=== PATIENT | male | born 1950 | race African-American/Black ===

== ENCOUNTER 2023-10-12 10:27 | Observation (INO) | payer OTHER ==
[2023-10-12] MEDS ORDERED: ACETAMINOPHEN 1000 MG/100 ML BAG IVPB ONE (12:15)
[2023-10-12] MEDS ORDERED: CALCIUM GLUCONATE 10% - 1,000 MG/10 ML VIAL IVPB ONE (12:42)
[2023-10-12 12:50] LABS: BASO % 0.6 % (0-2.0); EOS % 1.1 % (0-4.5); HEMOGLOBIN 10.3 GM/dL (11.7-16.9); LYMPH % 9.8 % (8-40); MCH 28.9 pg (25.7-33.7); MCHC 32.1 g/dl (32.0-35.9); MEAN PLT VOLUME 7.2 fl (7.5-11.1); MONO % 5.9 % (3.8-10.2); NEUT % 82.6 % (42.8-82.8); PLATELET COUNT 157 10^3/uL (134-434); RBC 3.56 M/mm3 (4.00-5.60); RDW 18.3 % (11.9-15.9); WHITE BLOOD COUNT 6.7 K/mm3 (4.0-10.0)
[2023-10-12] MEDS ORDERED: ACETAMINOPHEN INJECTION 100 ML IVPB ONE (12:53)
[2023-10-12] MEDS ORDERED: CALCIUM GLUCONATE 10% - 1,000 MG/10 ML VIAL ONE (12:53)
[2023-10-12 12:55] LABS: INR 1.27 (0.83-1.09); PROTHROMBIN TIME (PATIENT) 14.7 SEC (9.7-13.0)
[2023-10-12 13:09] LABS: POTASSIUM 5.1 mmol/L (3.5-5.1)
[2023-10-12 13:12] LABS: CALCIUM 8.1 mg/dL (8.5-10.1)
[2023-10-12 13:13] LABS: ALBUMIN 2.2 g/dl (3.4-5.0); BLOOD UREA NITROGEN 53.8 mg/dL (7-18); MAGNESIUM 2.1 mg/dL (1.8-2.4)
[2023-10-12 13:17] LABS: BILIRUBIN,TOTAL 0.3 mg/dL (0.2-1); TOT PROT 9.5 g/dl (6.4-8.2)
[2023-10-12 14:37] LABS: POTASSIUM 4.8 mmol/L (3.5-5.1)
[2023-10-12 14:40] LABS: CALCIUM 8.3 mg/dL (8.5-10.1)
[2023-10-12 14:41] LABS: BLOOD UREA NITROGEN 55.9 mg/dL (7-18)
[2023-10-12 14:43] LABS: CREATININE 5.8 mg/dL (0.55-1.3)
[2023-10-12] MEDS ORDERED: SODIUM CHLORIDE 250 ML IV PRN (14:54)
[2023-10-12] MEDS ORDERED: EPOETIN ALFA-EPBX 4,000 UNIT/ML VIAL SQ ONE ×2 (14:54→16:00)
[2023-10-12 15:00] LABS: EPI CELLS 14 /uL (0-25.1); HYALINE CASTS 0 /uL (0-3.1); PH,URINE 6.5 (5.0-8.0); URINE APPEARANCE CLEAR; URINE BACTERIA 5 /uL (0-1359); URINE BILIRUBIN NEGATIVE (NEGATIVE); URINE COLOR YELLOW; URINE GLUCOSE (UA) NEGATIVE (NEGATIVE); URINE KETONE NEGATIVE (NEGATIVE); URINE LEUK ESTERASE NEGATIVE (NEGATIVE); URINE NITRITE NEGATIVE (NEGATIVE); URINE PROTEIN 3+ (NEGATIVE); URINE RBC 14 /uL (0-23.9); URINE UROBILINOGEN 0.2 mg/dL (0.2-1.0); URINE WBC 13 /uL (0-25.8)
[2023-10-12] MEDS ORDERED: EPOETIN ALFA-EPBX 2,000 UNIT/ML VIAL SQ ONE (16:00)
[2023-10-12] MEDS ORDERED: oxyCODONE HCL 5 MG TABLET PO ONE (22:15)
[2023-10-12] MEDS ORDERED: oxyCODONE HCL 5 MG TABLET ONE (22:36)
[2023-10-13 07:21] LABS: BASO % 0.3 % (0-2.0); EOS % 1.4 % (0-4.5); HEMATOCRIT 25.5 % (35.4-49); HEMOGLOBIN 8.4 GM/dL (11.7-16.9); MCHC 33.1 g/dl (32.0-35.9); MEAN CELL VOLUME 87.5 fl (80-96); MONO % 8.1 % (3.8-10.2); NEUT % 76.2 % (42.8-82.8); PLATELET COUNT 130 10^3/uL (134-434); RBC 2.91 M/mm3 (4.00-5.60); RDW 17.9 % (11.9-15.9); WHITE BLOOD COUNT 6.3 K/mm3 (4.0-10.0)
[2023-10-13 07:30] LABS: CALCIUM 7.4 mg/dL (8.5-10.1)
[2023-10-13 07:31] LABS: ALBUMIN 1.9 g/dl (3.4-5.0)
[2023-10-13 07:34] LABS: CREATININE 3.7 mg/dL (0.55-1.3)
[2023-10-13 07:36] LABS: BILIRUBIN,TOTAL 0.4 mg/dL (0.2-1)
[2023-10-13 07:51] LABS: BLOOD UREA NITROGEN 30.1 mg/dL (7-18)
[2023-10-13] MEDS ORDERED: LIDOCAINE 4% PATCH TP ONE (11:03)
[2023-10-13] MEDS ORDERED: ACETAMINOPHEN 500 MG TABLET (FP) ONE (11:04)
[2023-10-13] MEDS ORDERED: amLODIPine BESYLATE 5 MG TABLET (FP) ONE (11:07)
[2023-10-13] MEDS: ACETAMINOPHEN 500 MG TABLET (FP) PO SCH ×2 (11:13→13:21)
[2023-10-13] MEDS: LIDOCAINE 4% PATCH TP SCH (11:13)
[2023-10-13] MEDS: amLODIPine BESYLATE 5 MG TABLET (FP) PO SCH (11:13)
[2023-10-13] MEDS ORDERED: NALOXONE (NYS OPIOID OVERDOSE PROGRAM) 4 MG/0.1 ML SPRAY NS ONE (13:35)
[2023-10-14] MEDS: ACETAMINOPHEN 500 MG TABLET (FP) PO SCH ×4 (00:04→23:23)
[2023-10-14] MEDS: LIDOCAINE PATCH REMOVAL MC SCH ×2 (00:04→23:25)
[2023-10-14] MEDS ORDERED: ACETAMINOPHEN 325 MG TABLET (FP) ONE (01:32)
[2023-10-14] MEDS ORDERED: MELATONIN 5 MG TABLETS ONE (02:06)
[2023-10-14] MEDS ORDERED: oxyCODONE HCL 5 MG TABLET PO ONE (02:47)
[2023-10-14] MEDS ORDERED: SODIUM CHLORIDE 250 ML IV PRN (07:51)
[2023-10-14] MEDS ORDERED: EPOETIN ALFA-EPBX 4,000 UNIT/ML VIAL SQ ONE (08:15)
[2023-10-14 09:18] VITALS: RESP 18
[2023-10-14 09:27] LABS: HEMATOCRIT 26.5 % (35.4-49); HEMOGLOBIN 8.8 GM/dL (11.7-16.9); MCH 29.4 pg (25.7-33.7); MCHC 33.2 g/dl (32.0-35.9); MEAN CELL VOLUME 88.8 fl (80-96); MEAN PLT VOLUME 7.1 fl (7.5-11.1); PLATELET COUNT 137 10^3/uL (134-434); RBC 2.98 M/mm3 (4.00-5.60); RDW 17.8 % (11.9-15.9); WHITE BLOOD COUNT 6.3 K/mm3 (4.0-10.0)
[2023-10-14 09:43] LABS: POTASSIUM 4.4 mmol/L (3.5-5.1)
[2023-10-14 09:54] LABS: CREATININE 4.4 mg/dL (0.55-1.3)
[2023-10-14 09:55] LABS: BILIRUBIN,TOTAL 0.4 mg/dL (0.2-1); TOT PROT 8.4 g/dl (6.4-8.2)
[2023-10-14] MEDS: TAMSULOSIN HCL 0.4 MG CAP PO SCH ×2 (11:10→12:43)
[2023-10-14] MEDS: FINASTERIDE 5 MG TABLET (FP) PO SCH (12:43)
[2023-10-14] MEDS: amLODIPine BESYLATE 5 MG TABLET (FP) PO SCH (12:43)
[2023-10-14] MEDS: LIDOCAINE 4% PATCH TP SCH (12:43)
[2023-10-14 14:06] VITALS: BMI 23.4
[2023-10-14] MEDS: oxyCODONE HCL 5 MG TABLET PO PRN (15:43)
[2023-10-15] MEDS: ACETAMINOPHEN 500 MG TABLET (FP) PO SCH (06:11)
[2023-10-15] MEDS: LIDOCAINE 4% PATCH TP SCH (09:48)
[2023-10-15] MEDS: amLODIPine BESYLATE 5 MG TABLET (FP) PO SCH (09:48)
[2023-10-15] MEDS: TAMSULOSIN HCL 0.4 MG CAP PO SCH (09:48)
[2023-10-15] MEDS: FINASTERIDE 5 MG TABLET (FP) PO SCH (09:48)
[2023-10-15 09:52] VITALS: BP 114/76; PULSE 90; TEMP 97.8
[2023-10-15] MEDS ORDERED: APIXABAN 2.5 MG TABLET PO SCH (11:15)
[2023-10-15] MEDS: oxyCODONE HCL 5 MG TABLET PO PRN (12:55)
== END 2023-10-15 13:23 | disposition home or self-care (01) ==
LOC: JER 10:27 → JERBED 14:45 → J4W 10-14 11:35
PROVIDERS: ADMIT Internal Medicine; ATTEND Internal Medicine
PROC: 3E033NZ Introduction of Analgesics, Hypnotics, Sedatives into Peripheral Vein, Percutaneous Approach (ICD-10-PCS; principal; 2023-10-12)
PROC: 3E033GC Introduction of Other Therapeutic Substance into Peripheral Vein, Percutaneous Approach (ICD-10-PCS; 2023-10-12)
PROC: 3E033NZ Introduction of Analgesics, Hypnotics, Sedatives into Peripheral Vein, Percutaneous Approach (ICD-10-PCS; 2023-10-12)
PROC: 3E023GC Introduction of Other Therapeutic Substance into Muscle, Percutaneous Approach (ICD-10-PCS; 2023-10-12)
PROC: 3E033NZ Introduction of Analgesics, Hypnotics, Sedatives into Peripheral Vein, Percutaneous Approach (ICD-10-PCS; 2023-10-12)
PROC: 3E033GC Introduction of Other Therapeutic Substance into Peripheral Vein, Percutaneous Approach (ICD-10-PCS; 2023-10-12)
PROC: 3E023GC Introduction of Other Therapeutic Substance into Muscle, Percutaneous Approach (ICD-10-PCS; 2023-10-12)
DX: I12.0 Hypertensive chronic kidney disease with stage 5 chronic kidney disease or end stage renal disease (principal); I24.9 Acute ischemic heart disease, unspecified; D64.9 Anemia, unspecified; N40.0 Benign prostatic hyperplasia without lower urinary tract symptoms; M25.519 Pain in unspecified shoulder; K74.60 Unspecified cirrhosis of liver; N18.6 End stage renal disease; Z99.2 Dependence on renal dialysis; R25.2 Cramp and spasm; R07.9 Chest pain, unspecified; Z87.891 Personal history of nicotine dependence
CPT/HCPCS: 36415; 71045-TC-FY; 73030-TC-LT-FY; 80048; 80053; 81003; 82607; 82728; 82746; 82962; 83540; 83550; 83735; 83880; 84100; 84443; 84466; 84484; 85025; 85027; 85610; 86704; 86803; 86850; 86900; 86901; 87086; 87340; 87517; 87522; 93005; 93010; 93306-TC; 96372; 96374; 96375; 97116-GP; 97161-GP; 99285-25; G0378; Q5106

== ENCOUNTER 2023-12-28 10:13 | Inpatient (IN) | payer OTHER ==
[2023-12-28] MEDS ORDERED: ACETAMINOPHEN INJECTION 100 ML IVPB ONE (11:22)
[2023-12-28] MEDS: ACETAMINOPHEN 1000 MG/100 ML BAG IVPB ONE ×2 (11:40→14:03)
[2023-12-28 11:44] LABS: BASO % 0.5 % (0-2.0); EOS % 2.4 % (0-4.5); HEMATOCRIT 26.2 % (35.4-49); HEMOGLOBIN 8.6 GM/dL (11.7-16.9); LYMPH % 18.2 % (8-40); MCH 29.5 pg (25.7-33.7); MEAN CELL VOLUME 89.6 fl (80-96); MEAN PLT VOLUME 6.9 fl (7.5-11.1); MONO % 8.8 % (3.8-10.2); NEUT % 70.1 % (42.8-82.8); PLATELET COUNT 170 10^3/uL (134-434); RBC 2.93 M/mm3 (4.00-5.60); RDW 17.7 % (11.9-15.9); WHITE BLOOD COUNT 4.5 K/mm3 (4.0-10.0)
[2023-12-28 11:59] LABS: POTASSIUM 4.6 mmol/L (3.5-5.1)
[2023-12-28 12:02] LABS: ALBUMIN 2.1 g/dl (3.4-5.0); BLOOD UREA NITROGEN 40.4 mg/dL (7-18); CALCIUM 7.8 mg/dL (8.5-10.1); MAGNESIUM 2.1 mg/dL (1.8-2.4)
[2023-12-28 12:05] LABS: CREATININE 5.5 mg/dL (0.55-1.3); PHOSPHOROUS 4.2 mg/dL (2.5-4.9)
[2023-12-28 12:07] LABS: BILIRUBIN,TOTAL 0.3 mg/dL (0.2-1); TOT PROT 8.7 g/dl (6.4-8.2)
[2023-12-28] MEDS ORDERED: ACETAMINOPHEN 325 MG TABLET (FP) PO PRN (14:47)
[2023-12-28] MEDS ORDERED: SODIUM CHLORIDE 250 ML IV PRN (15:28)
[2023-12-28] MEDS ORDERED: oxyCODONE HCL 5 MG TABLET ONE (15:37)
[2023-12-28] MEDS: oxyCODONE HCL 5 MG TABLET PO PRN (15:42)
[2023-12-28] MEDS: EPOETIN ALFA-EPBX 4,000 UNIT/ML VIAL SQ ONE (16:40)
[2023-12-28] MEDS ORDERED: VANCOMYCIN 1,000 MG in DEXTROSE 5%-WATER - 250 ML IVPB ONE (18:47)
[2023-12-28] MEDS ORDERED: PIPERACILLIN/TAZOB 3.375 GM 3.375 GM in DEXTROSE 5%-WATER - 50 ML IVPB ONE (19:29)
[2023-12-28 20:46] LABS: BF WBC & OTHER NUCLEATED CELLS 48968 /mm3
[2023-12-28 21:22] LABS: BODY FLUID MONOCYTE 1 %
[2023-12-28] MEDS: PIPERACILLIN/TAZOB 4.5 GM 4.5 GM in DEXTROSE 5%-WATER 100 ML IVPB ONE (22:01)
[2023-12-28] MEDS: DOCUSATE SODIUM 100 MG CAPSULE (FP) PO SCH (22:42)
[2023-12-28] MEDS: PIPERACILLIN/TAZOB 3.375 GM 3.375 GM in DEXTROSE 5%-WATER - 50 ML IVPB ONE (22:42)
[2023-12-28] MEDS: VANCOMYCIN/WATER FOR INJ (PEG) 1,000 MG/200 ML BAG IVPB ONE (22:43)
[2023-12-29] MEDS ORDERED: PIPERACILLIN/TAZOB 3.375 GM 3.375 GM in DEXTROSE 5%-WATER - 50 ML IVPB SCH (02:00)
[2023-12-29] MEDS: PIPERACILLIN/TAZOB 2.25 GM 2.25 GM in DEXTROSE 5%-WATER - 50 ML IVPB SCH ×3 (02:41→14:13)
[2023-12-29] MEDS: TAMSULOSIN HCL 0.4 MG CAP PO SCH (08:19)
[2023-12-29 10:03] LABS: BASO % 0.3 % (0-2.0); EOS % 2.4 % (0-4.5); HEMATOCRIT 25.4 % (35.4-49); HEMOGLOBIN 8.3 GM/dL (11.7-16.9); LYMPH % 16.5 % (8-40); MCH 29.5 pg (25.7-33.7); MCHC 32.8 g/dl (32.0-35.9); NEUT % 73.8 % (42.8-82.8); PLATELET COUNT 140 10^3/uL (134-434); RBC 2.82 M/mm3 (4.00-5.60); RDW 17.8 % (11.9-15.9); WHITE BLOOD COUNT 5.3 K/mm3 (4.0-10.0)
[2023-12-29 10:15] LABS: POTASSIUM 5.4 mmol/L (3.5-5.1)
[2023-12-29 10:35] LABS: CALCIUM 7.5 mg/dL (8.5-10.1)
[2023-12-29 10:36] LABS: ALBUMIN 1.8 g/dl (3.4-5.0)
[2023-12-29 10:37] LABS: BLOOD UREA NITROGEN 51.2 mg/dL (7-18); MAGNESIUM 1.9 mg/dL (1.8-2.4)
[2023-12-29 10:39] LABS: CREATININE 5.6 mg/dL (0.55-1.3)
[2023-12-29 10:41] LABS: BILIRUBIN,TOTAL 0.3 mg/dL (0.2-1); TOT PROT 7.8 g/dl (6.4-8.2)
[2023-12-29] MEDS: EPOETIN ALFA-EPBX 4,000 UNIT/ML VIAL IVPUSH ONE (12:41)
[2023-12-29] MEDS: VANCOMYCIN/WATER FOR INJ (PEG) 1 GM/200 ML BAG IVPB ONE (14:08)
[2023-12-29] MEDS: FINASTERIDE 5 MG TABLET (FP) PO SCH (14:09)
[2023-12-29] MEDS: amLODIPine BESYLATE 5 MG TABLET (FP) PO SCH (14:11)
[2023-12-29] MEDS: VANCOMYCIN 1 GM PREMIX - 1 GM/200 ML BAG IVPB ONE (15:25)
[2023-12-30] MEDS ORDERED: PIPERACILLIN/TAZOBACTAM 2.25 GM VIAL IVPB ONE (01:48)
[2023-12-30 08:29] LABS: BASO % 0.5 % (0-2.0); EOS % 1.8 % (0-4.5); HEMATOCRIT 25.8 % (35.4-49); HEMOGLOBIN 8.3 GM/dL (11.7-16.9); LYMPH % 15.1 % (8-40); MCH 28.8 pg (25.7-33.7); MCHC 32.1 g/dl (32.0-35.9); MEAN CELL VOLUME 89.9 fl (80-96); MONO % 11.3 % (3.8-10.2); NEUT % 71.3 % (42.8-82.8); PLATELET COUNT 135 10^3/uL (134-434); RBC 2.87 M/mm3 (4.00-5.60); RDW 18.2 % (11.9-15.9); WHITE BLOOD COUNT 5.6 K/mm3 (4.0-10.0)
[2023-12-30 08:55] LABS: CALCIUM 7.7 mg/dL (8.5-10.1)
[2023-12-30 08:56] LABS: ALBUMIN 1.8 g/dl (3.4-5.0); BLOOD UREA NITROGEN 31.4 mg/dL (7-18)
[2023-12-30] MEDS ORDERED: MECLIZINE HCL 12.5 MG TABLET PO PRN ×2 (08:58→16:14)
[2023-12-30 08:59] LABS: CREATININE 3.5 mg/dL (0.55-1.3)
[2023-12-30 09:00] LABS: BILIRUBIN,TOTAL 0.5 mg/dL (0.2-1); TOT PROT 7.8 g/dl (6.4-8.2)
[2023-12-30] MEDS: morphine SULFATE 4 MG/ML VIAL IVPUSH ONE (10:10)
[2023-12-30] MEDS ORDERED: PROPOFOL 40 ML ONE (13:56)
[2023-12-30] MEDS ORDERED: ROCURONIUM BROMIDE 50 MG/5 ML SYRINGE ONE (13:57)
[2023-12-30] MEDS ORDERED: SUCCINYLCHOLINE CHLORIDE 200 MG/10 ML SYRINGE ONE (13:57)
[2023-12-30] MEDS ORDERED: FENTANYL CITRATE/PF 50 MCG/ML VIAL ONE ×4 (13:57→15:42)
[2023-12-30] MEDS ORDERED: ceFAZolin SODIUM 1 GM VIAL ONE ×2 (14:00→15:06)
[2023-12-30] MEDS: ceFAZolin SODIUM 1 GM VIAL IVPB ONE ×2 (14:10→14:57)
[2023-12-30] MEDS: VANCOMYCIN 1,000 MG VIAL (RESTRICTED TO ID ONLY) IVPB ONE (15:00)
[2023-12-30] MEDS ORDERED: VANCOMYCIN 1,000 MG VIAL (RESTRICTED TO ID ONLY) ONE (15:06)
[2023-12-30] MEDS ORDERED: LIDOCAINE HCL/PF 2% SDV 5ML VIAL ONE (15:06)
[2023-12-30] MEDS ORDERED: PHENYLEPHRINE HCL 10 MG/1 ML SINGLE DOSE VIAL ONE (15:06)
[2023-12-30] MEDS ORDERED: DEXAMETHASONE SOD PHOSPHATE 4 MG/1 ML VIAL ONE (15:06)
[2023-12-30] MEDS ORDERED: ONDANSETRON 4 MG/2 ML VIAL ONE (15:06)
[2023-12-30] MEDS: ACETAMINOPHEN INJECTION 100 ML IVPB ONE (15:55)
[2023-12-30] MEDS: ACETAMINOPHEN 1000 MG/100 ML BAG IVPB ONE (15:55)
[2023-12-30] MEDS ORDERED: LACTATED RINGERS SOLUTION 1,000 ML IV SCH (16:14)
[2023-12-30] MEDS: LACTATED RINGERS SOLUTION 1,000 ML IV SCH (18:12)
[2023-12-30] MEDS: oxyCODONE HCL 5 MG TABLET PO PRN (18:42)
[2023-12-30] MEDS ORDERED: SODIUM CHLORIDE 250 ML IV PRN (18:43)
[2023-12-30] MEDS: PIPERACILLIN/TAZOB 2.25 GM 2.25 GM in DEXTROSE 5%-WATER - 50 ML IVPB SCH (18:45)
[2023-12-30] MEDS: DOCUSATE SODIUM 100 MG CAPSULE (FP) PO SCH (21:24)
[2023-12-30] MEDS: ACETAMINOPHEN 325 MG TABLET (FP) PO PRN (22:40)
[2023-12-31] MEDS: EPOETIN ALFA-EPBX 10,000 UNIT/ML VIAL SQ ONE (10:30)
[2023-12-31] MEDS: FINASTERIDE 5 MG TABLET (FP) PO SCH (12:46)
[2023-12-31] MEDS: TAMSULOSIN HCL 0.4 MG CAP PO SCH (12:46)
[2023-12-31] MEDS: amLODIPine BESYLATE 5 MG TABLET (FP) PO SCH (12:47)
[2023-12-31] MEDS: oxyCODONE HCL 5 MG TABLET PO PRN (13:03)
[2024-01-03] MEDS ORDERED: SODIUM CHLORIDE 250 ML IV PRN (08:00)
[2024-01-03] MEDS: EPOETIN ALFA-EPBX 4,000 UNIT/ML VIAL IVPUSH ONE (11:29)
[2024-01-03] MEDS ORDERED: PIPERACILLIN/TAZOBACTAM 2.25 GM VIAL IVPB ONE ×2 (13:11→17:45)
[2024-01-03] MEDS: VANCOMYCIN/WATER FOR INJ (PEG) 1,000 MG/200 ML BAG IVPB ONE (15:13)
[2024-01-03] MEDS: MECLIZINE HCL 25 MG TABLET (FP) PO PRN (18:21)
[2024-01-04] MEDS: oxyCODONE HCL 5 MG TABLET PO ONE (01:09)
[2024-01-04 11:26] VITALS: BMI 21.7
[2024-01-04] MEDS: CEFTRIAXONE 2 GM in DEXTROSE 5%-WATER 100 ML IVPB SCH (13:35)
[2024-01-04] MEDS ORDERED: MECLIZINE HCL 25 MG TABLET (FP) PO PRN (15:42)
[2024-01-05] MEDS: VITAMIN B COMP W-C 1 EA TABLET (NEPHRO-VITE) PO SCH (09:23)
[2024-01-05] MEDS ORDERED: SODIUM CHLORIDE 250 ML IV PRN (13:41)
[2024-01-05] MEDS: EPOETIN ALFA-EPBX 10,000 UNIT/ML VIAL IVPUSH ONE (16:28)
[2024-01-05] MEDS: VANCOMYCIN/WATER 1250 MG 1,250 MG/250 ML BAG IVPB ONE (17:16)
[2024-01-05] MEDS: oxyCODONE HCL 5 MG TABLET PO PRN (17:23)
[2024-01-06 11:09] VITALS: BP 132/62; PULSE 75; RESP 19; TEMP 98.6
[2024-01-06 13:12] LABS: BASO % 0.7 % (0-2.0); EOS % 3.6 % (0-4.5); HEMATOCRIT 23.2 % (35.4-49); HEMOGLOBIN 7.5 GM/dL (11.7-16.9); MCH 29.7 pg (25.7-33.7); MCHC 32.1 g/dl (32.0-35.9); MEAN CELL VOLUME 92.4 fl (80-96); MEAN PLT VOLUME 7.2 fl (7.5-11.1); MONO % 10.1 % (3.8-10.2); NEUT % 63.6 % (42.8-82.8); PLATELET COUNT 168 10^3/uL (134-434); RBC 2.52 M/mm3 (4.00-5.60); RDW 18.8 % (11.9-15.9); WHITE BLOOD COUNT 5.2 K/mm3 (4.0-10.0)
[2024-01-06 13:32] LABS: CHLORIDE 96 mmol/L (98-107); POTASSIUM 3.5 mmol/L (3.5-5.1); SODIUM 135 mmol/L (136-145)
[2024-01-06 13:34] LABS: ALBUMIN 1.9 g/dl (3.4-5.0); ANION GAP 8 mmol/L (4-13); CALCIUM 8.1 mg/dL (8.5-10.1); CO2 31 mmol/L (21-32); GLUCOSE,RANDOM 124 mg/dL (74-106)
[2024-01-06 13:37] LABS: SGPT/ALT < 6 U/L (13-61)
[2024-01-06 13:38] LABS: CREATININE 3.6 mg/dL (0.55-1.3); SGOT/AST 19 U/L (15-37)
[2024-01-06 13:39] LABS: BILIRUBIN,TOTAL 0.4 mg/dL (0.2-1); TOT PROT 8.2 g/dl (6.4-8.2)
[2024-01-06 13:40] LABS: ALK PHOS 72 U/L (45-117)
[2024-01-06 14:58] LABS: ERYTHROCYTE SEDIMENTATION RATE > 140 mm/hr (0-20)
== END 2024-01-06 14:38 | disposition home health service (06) | DRG 463 ==
LOC: JER 10:13 → JERBED 14:05 → OBSVTOIN 14:43 → J8W 19:16
PROVIDERS: ADMIT Internal Medicine; ATTEND Internal Medicine
PROC: 05993ZZ Drainage of Right Brachial Vein, Percutaneous Approach (ICD-10-PCS; 2023-12-30)
PROC: 3E10X8Z Irrigation of Skin and Mucous Membranes using Irrigating Substance (ICD-10-PCS; 2023-12-30)
PROC: 0JBL0ZZ Excision of Right Upper Leg Subcutaneous Tissue and Fascia, Open Approach (ICD-10-PCS; principal; 2023-12-30 14:00)
PROC: 5A1D70Z Performance of Urinary Filtration, Intermittent, Less than 6 Hours Per Day (ICD-10-PCS; 2023-12-31)
PROC: 5A1D70Z Performance of Urinary Filtration, Intermittent, Less than 6 Hours Per Day (ICD-10-PCS; 2024-01-03)
PROC: 5A1D70Z Performance of Urinary Filtration, Intermittent, Less than 6 Hours Per Day (ICD-10-PCS; 2024-01-05)
DX: T84.51XA Infection and inflammatory reaction due to internal right hip prosthesis, initial encounter (principal); N18.6 End stage renal disease; M00.9 Pyogenic arthritis, unspecified; I12.0 Hypertensive chronic kidney disease with stage 5 chronic kidney disease or end stage renal disease; Z96.643 Presence of artificial hip joint, bilateral; N40.0 Benign prostatic hyperplasia without lower urinary tract symptoms; R26.2 Difficulty in walking, not elsewhere classified; Y83.8 Other surgical procedures as the cause of abnormal reaction of the patient, or of later complication, without mention of misadventure at the time of the procedure; Y92.9 Unspecified place or not applicable; Z99.2 Dependence on renal dialysis
CPT/HCPCS: 36415; 72192-TC; 73502-TC-RT-FY; 80053; 82962; 83735; 84100; 85025; 85651; 86140; 86704; 86705; 86803; 87040; 87070; 87075; 87102; 87205; 87210; 87340; 87522; 88304-TC; 93005; 93010; 93880-TC; 94760; 97116-GP; 97161-GP; 99285-25; G0378; G0480; J0131; Q5106

== ENCOUNTER 2024-02-08 10:29 | Inpatient (IN) | payer OTHER ==
[2024-02-08 13:09] LABS: BASO % 0.6 % (0-2.0); EOS % 1.8 % (0-4.5); HEMATOCRIT 28.1 % (35.4-49); HEMOGLOBIN 9.2 GM/dL (11.7-16.9); LYMPH % 17.9 % (8-40); MCH 31.4 pg (25.7-33.7); MCHC 32.8 g/dl (32.0-35.9); MEAN CELL VOLUME 95.8 fl (80-96); MEAN PLT VOLUME 8.2 fl (7.5-11.1); MONO % 11.2 % (3.8-10.2); NEUT % 68.5 % (42.8-82.8); PLATELET COUNT 113 10^3/uL (134-434); RBC 2.93 M/mm3 (4.00-5.60); RDW 17.3 % (11.9-15.9); WHITE BLOOD COUNT 3.6 K/mm3 (4.0-10.0)
[2024-02-08 13:43] LABS: CHLORIDE 106 mmol/L (98-107); SODIUM 128 mmol/L (136-145)
[2024-02-08 13:45] LABS: BLOOD UREA NITROGEN 56.9 mg/dL (7-18); CALCIUM 8.2 mg/dL (8.5-10.1)
[2024-02-08 13:46] LABS: ALBUMIN 2.4 g/dl (3.4-5.0); CO2 19 mmol/L (21-32); GLUCOSE,RANDOM 101 mg/dL (74-106); MAGNESIUM 2.6 mg/dL (1.8-2.4)
[2024-02-08 13:49] LABS: SGOT/AST 59 U/L (15-37)
[2024-02-08 13:50] LABS: BILIRUBIN,TOTAL 0.5 mg/dL (0.2-1); ERYTHROCYTE SEDIMENTATION RATE 108 mm/hr (0-20); TOT PROT 9.7 g/dl (6.4-8.2)
[2024-02-08 13:52] LABS: ALK PHOS 87 U/L (45-117)
[2024-02-08 13:57] LABS: ANION GAP 4 mmol/L (4-13); CREATININE 5.7 mg/dL (0.55-1.3); POTASSIUM 8.6 mmol/L (3.5-5.1); SGPT/ALT 11 U/L (13-61)
[2024-02-08] MEDS ORDERED: ACETAMINOPHEN INJECTION 100 ML IVPB ONE (14:54)
[2024-02-08] MEDS: ACETAMINOPHEN 1000 MG/100 ML BAG IVPB ONE (15:06)
[2024-02-08] MEDS: SODIUM CHLORIDE 500 ML IV STA (15:06)
[2024-02-08] MEDS ORDERED: SODIUM CHLORIDE 250 ML IV PRN (17:44)
[2024-02-08 18:20] LABS: POTASSIUM 4.7 mmol/L (3.5-5.1)
[2024-02-08 18:21] LABS: BLOOD UREA NITROGEN 56.8 mg/dL (7-18)
[2024-02-08 18:25] LABS: CREATININE 5.4 mg/dL (0.55-1.3)
[2024-02-08] MEDS: EPOETIN ALFA-EPBX 3,000 UNIT/ML VIAL IVPUSH ONE (20:41)
[2024-02-09] MEDS: HEPARIN NA (PORCINE) 5,000 UNITS/ML 1ML VIAL SQ SCH (03:38)
[2024-02-09] MEDS: metoPROLOL SUCCINATE 25 MG TAB.SR.24H (FP) PO SCH (09:19)
[2024-02-09 09:56] LABS: BASO % 0.4 % (0-2.0); EOS % 1.1 % (0-4.5); HEMATOCRIT 26.4 % (35.4-49); HEMOGLOBIN 8.6 GM/dL (11.7-16.9); LYMPH % 12.3 % (8-40); MCH 30.9 pg (25.7-33.7); MCHC 32.7 g/dl (32.0-35.9); MEAN CELL VOLUME 94.5 fl (80-96); MEAN PLT VOLUME 8.2 fl (7.5-11.1); MONO % 12.1 % (3.8-10.2); NEUT % 74.1 % (42.8-82.8); PLATELET COUNT 113 10^3/uL (134-434); RBC 2.79 M/mm3 (4.00-5.60); RDW 16.7 % (11.9-15.9); WHITE BLOOD COUNT 3.5 K/mm3 (4.0-10.0)
[2024-02-09 10:08] LABS: POTASSIUM 4.1 mmol/L (3.5-5.1)
[2024-02-09 10:14] LABS: ALBUMIN 2.1 g/dl (3.4-5.0); CALCIUM 8.1 mg/dL (8.5-10.1); MAGNESIUM 1.9 mg/dL (1.8-2.4)
[2024-02-09 10:17] LABS: CREATININE 3.4 mg/dL (0.55-1.3)
[2024-02-09 10:18] LABS: BILIRUBIN,TOTAL 0.9 mg/dL (0.2-1); PHOSPHOROUS 2.6 mg/dL (2.5-4.9)
[2024-02-09 10:19] LABS: TOT PROT 7.8 g/dl (6.4-8.2)
[2024-02-09 10:22] LABS: BLOOD UREA NITROGEN 25.5 mg/dL (7-18)
[2024-02-09] MEDS: IRON SUCROSE INJECTION 200 MG in SODIUM CHLORIDE 100 ML IVPB ONE (11:27)
[2024-02-09] MEDS: CEFTRIAXONE 2 GM in DEXTROSE 5%-WATER 100 ML IVPB SCH (12:44)
[2024-02-09] MEDS: oxyCODONE HCL 5 MG TABLET PO PRN (13:54)
[2024-02-09] MEDS: APIXABAN 5 MG TABLET PO SCH ×2 (15:37→21:23)
[2024-02-09] MEDS ORDERED: SODIUM CHLORIDE 250 ML IV PRN (17:13)
[2024-02-10 09:34] VITALS: RESP 18; TEMP 98.8
[2024-02-10 12:30] VITALS: PULSE 98
[2024-02-10] MEDS: EPOETIN ALFA-EPBX 3,000 UNIT/ML VIAL IVPUSH ONE (12:31)
[2024-02-10 13:08] VITALS: BP 158/83
[2024-02-11 12:50] VITALS: BMI 235.6
== END 2024-02-10 14:32 | disposition left against medical advice (07) | DRG 559 ==
LOC: JER 10:29 → JERBED 14:53 → J8W 21:07
PROVIDERS: ADMIT Internal Medicine; ATTEND Internal Medicine
DX: T84.51XA Infection and inflammatory reaction due to internal right hip prosthesis, initial encounter (principal); N18.6 End stage renal disease; M00.9 Pyogenic arthritis, unspecified; I12.0 Hypertensive chronic kidney disease with stage 5 chronic kidney disease or end stage renal disease; D63.1 Anemia in chronic kidney disease; I48.0 Paroxysmal atrial fibrillation; Z99.2 Dependence on renal dialysis; G89.29 Other chronic pain; M25.561 Pain in right knee; Y83.8 Other surgical procedures as the cause of abnormal reaction of the patient, or of later complication, without mention of misadventure at the time of the procedure; Z96.643 Presence of artificial hip joint, bilateral
CPT/HCPCS: 36415; 71045-TC-FY; 73502-TC-RT-FY; 73562-TC-RT-FY; 76705-TC; 80048; 80053; 82728; 82962; 83540; 83550; 83735; 84100; 84466; 85025; 85045; 85651; 86140; 86803; 87040; 87340; 87522; 93005; 93010; 99285-25; J0131; J1756; Q5106

== ENCOUNTER 2024-03-25 09:58 | Inpatient (IN) | payer OTHER ==
[2024-03-25 10:33] VITALS: BMI 26.7
[2024-03-25 12:10] LABS: BASO % 0.3 % (0-2.0); EOS % 1.3 % (0-4.5); HEMATOCRIT 28.5 % (35.4-49); HEMOGLOBIN 9.3 GM/dL (11.7-16.9); LYMPH % 10.1 % (8-40); MCHC 32.7 g/dl (32.0-35.9); MEAN CELL VOLUME 91.7 fl (80-96); MEAN PLT VOLUME 7.1 fl (7.5-11.1); MONO % 15.7 % (3.8-10.2); NEUT % 72.6 % (42.8-82.8); PLATELET COUNT 117 10^3/uL (134-434); RBC 3.11 M/mm3 (4.00-5.60); RDW 17.3 % (11.9-15.9); WHITE BLOOD COUNT 4.1 K/mm3 (4.0-10.0)
[2024-03-25 12:20] LABS: INR 1.28 (0.83-1.09); PROTHROMBIN TIME (PATIENT) 14.4 SEC (9.7-13.0)
[2024-03-25 12:25] LABS: VENOUS BASE EXCESS 1.5 mmol/L (-2-2); VENOUS O2 SATURATION 72.2 % (70-80); VENOUS PCO2 50.4 mmHg (38-52); VENOUS PH 7.356 (7.310-7.410)
[2024-03-25] MEDS ORDERED: ALBUTEROL SO4 2.5/IPRATROPIUM 0.5 INH SOL 3 ML VIAL.NEB. NEB ONE (12:50)
[2024-03-25] MEDS: ALBUTEROL SO4 2.5/IPRATROPIUM 0.5 INH SOL 3 ML VIAL.NEB. NEB ONE (12:57)
[2024-03-25 13:54] LABS: BLOOD UREA NITROGEN 34.6 mg/dL (7-18); CALCIUM 7.5 mg/dL (8.5-10.1); MAGNESIUM 2.1 mg/dL (1.8-2.4)
[2024-03-25 13:55] LABS: ALBUMIN 2.1 g/dl (3.4-5.0)
[2024-03-25 13:57] LABS: CREATININE 4.6 mg/dL (0.55-1.3)
[2024-03-25 13:59] LABS: BILIRUBIN,TOTAL 0.5 mg/dL (0.2-1); TOT PROT 8.1 g/dl (6.4-8.2)
[2024-03-25 14:02] LABS: N-TERMINAL BNP 23148.1 pg/ml (5-125)
[2024-03-25] MEDS ORDERED: SODIUM CHLORIDE 250 ML IV PRN (16:51)
[2024-03-25] MEDS ORDERED: MECLIZINE HCL 12.5 MG TABLET PO PRN (18:02)
[2024-03-25] MEDS ORDERED: ALBUTEROL SO4 2.5/IPRATROPIUM 0.5 INH SOL 3 ML VIAL.NEB. NEB PRN (18:03)
[2024-03-25] MEDS: FUROSEMIDE 40 MG/4 ML INJECTABLE VIAL IVPUSH SCH (18:58)
[2024-03-25] MEDS: ACETAMINOPHEN 1000 MG/100 ML BAG IVPB ONE (19:53)
[2024-03-25] MEDS: EPOETIN ALFA-EPBX 4,000 UNIT/ML VIAL IVPUSH ONE (20:29)
[2024-03-25] MEDS: HEPARIN NA (PORCINE) 5,000 UNITS/ML 1ML VIAL SQ SCH (21:52)
[2024-03-25] MEDS: DOCUSATE SODIUM 100 MG CAPSULE (FP) PO SCH (21:52)
[2024-03-25] MEDS: LIDOCAINE PATCH REMOVAL MC SCH (22:01)
[2024-03-26 08:58] LABS: HEMATOCRIT 28.1 % (35.4-49); HEMOGLOBIN 9.3 GM/dL (11.7-16.9); MCH 30.1 pg (25.7-33.7); MEAN CELL VOLUME 91.4 fl (80-96); MEAN PLT VOLUME 7.4 fl (7.5-11.1); PLATELET COUNT 121 10^3/uL (134-434); RBC 3.08 M/mm3 (4.00-5.60); RDW 17.4 % (11.9-15.9); WHITE BLOOD COUNT 4.2 K/mm3 (4.0-10.0)
[2024-03-26] MEDS: metoPROLOL SUCCINATE 25 MG TAB.SR.24H (FP) PO SCH (09:08)
[2024-03-26] MEDS: amLODIPine BESYLATE 5 MG TABLET (FP) PO SCH (09:08)
[2024-03-26] MEDS: TAMSULOSIN HCL 0.4 MG CAP PO SCH (09:08)
[2024-03-26] MEDS: FINASTERIDE 5 MG TABLET (FP) PO SCH (09:08)
[2024-03-26] MEDS: APIXABAN 5 MG TABLET PO SCH (09:08)
[2024-03-26] MEDS: LIDOCAINE 4% PATCH TP SCH (09:09)
[2024-03-26 09:32] LABS: POTASSIUM 3.8 mmol/L (3.5-5.1)
[2024-03-26 09:33] LABS: CALCIUM 7.4 mg/dL (8.5-10.1)
[2024-03-26 09:34] LABS: BLOOD UREA NITROGEN 24.1 mg/dL (7-18)
[2024-03-26 09:37] LABS: CREATININE 3.7 mg/dL (0.55-1.3)
[2024-03-26 09:39] LABS: BILIRUBIN,TOTAL 0.4 mg/dL (0.2-1); TOT PROT 7.7 g/dl (6.4-8.2)
[2024-03-26 10:00] LABS: ANISOCYTOSIS 0; MACROCYTOSIS 0
[2024-03-26] MEDS: methylPREDNISolone NA SUCC 40 MG/1 ML VIAL IVPUSH SCH (11:36)
[2024-03-26] MEDS: ALBUTEROL SO4 2.5/IPRATROPIUM 0.5 INH SOL 3 ML VIAL.NEB. NEB SCH (12:00)
[2024-03-26] MEDS: MELATONIN 5 MG TABLETS PO ONE (22:12)
[2024-03-27 08:40] LABS: BASO % 0.2 % (0-2.0); EOS % 0.6 % (0-4.5); HEMOGLOBIN 8.8 GM/dL (11.7-16.9); LYMPH % 18.7 % (8-40); MCHC 32.6 g/dl (32.0-35.9); MEAN CELL VOLUME 91.9 fl (80-96); MEAN PLT VOLUME 7.4 fl (7.5-11.1); MONO % 11.1 % (3.8-10.2); NEUT % 69.4 % (42.8-82.8); PLATELET COUNT 115 10^3/uL (134-434); RBC 2.94 M/mm3 (4.00-5.60); RDW 17.1 % (11.9-15.9); WHITE BLOOD COUNT 3.3 K/mm3 (4.0-10.0)
[2024-03-27 09:11] LABS: POTASSIUM 3.9 mmol/L (3.5-5.1)
[2024-03-27 09:19] LABS: ALBUMIN 2.1 g/dl (3.4-5.0)
[2024-03-27 09:23] LABS: CREATININE 4.2 mg/dL (0.55-1.3)
[2024-03-27 09:24] LABS: TOT PROT 8.1 g/dl (6.4-8.2)
[2024-03-27 09:25] LABS: BILIRUBIN,TOTAL 0.4 mg/dL (0.2-1)
[2024-03-27] MEDS: oxyCODONE HCL 5 MG TABLET PO PRN (14:09)
[2024-03-27 19:36] VITALS: RESP 18
[2024-03-27] MEDS: MELATONIN 5 MG TABLETS PO ONE (23:56)
[2024-03-28] MEDS ORDERED: SODIUM CHLORIDE 250 ML IV PRN (07:20)
[2024-03-28] MEDS: EPOETIN ALFA-EPBX 4,000 UNIT/ML VIAL IVPUSH ONE (09:10)
[2024-03-29 07:49] LABS: HEMATOCRIT 30.3 % (35.4-49); HEMOGLOBIN 9.7 GM/dL (11.7-16.9); MCH 29.4 pg (25.7-33.7); MCHC 31.9 g/dl (32.0-35.9); MEAN CELL VOLUME 92.4 fl (80-96); MEAN PLT VOLUME 7.4 fl (7.5-11.1); PLATELET COUNT 114 10^3/uL (134-434); RBC 3.28 M/mm3 (4.00-5.60); RDW 17.7 % (11.9-15.9); WHITE BLOOD COUNT 4.1 K/mm3 (4.0-10.0)
[2024-03-29 08:07] LABS: POTASSIUM 4.2 mmol/L (3.5-5.1)
[2024-03-29 08:11] LABS: ALBUMIN 2.4 g/dl (3.4-5.0); BLOOD UREA NITROGEN 31.4 mg/dL (7-18)
[2024-03-29 08:13] LABS: CREATININE 3.4 mg/dL (0.55-1.3)
[2024-03-29 08:15] LABS: BILIRUBIN,TOTAL 0.4 mg/dL (0.2-1)
[2024-03-29] MEDS: LIDOCAINE 5% TOPICAL PATCH TP SCH (09:52)
[2024-03-29 11:43] LABS: ANISOCYTOSIS 0; HELMET CELLS 0; HOWELL-JOLLY BODIES 0; MACROCYTOSIS 0; OVALOCYTE 0; ROULEAU 0; SICKELED CELLS 0; TARGET CELLS 0; TEAR DROP CELLS 0; TOXIC GRANULATION 0
[2024-03-29 13:49] VITALS: PULSE 74
[2024-03-29 13:55] VITALS: BP 137/70; TEMP 98.3
== END 2024-03-29 15:20 | disposition left against medical advice (07) | DRG 291 ==
LOC: JER 09:58 → JERBED 14:25 → J4S 17:50 → OBSVTOIN 18:03
PROVIDERS: ADMIT Internal Medicine; ATTEND Internal Medicine
PROC: 5A1D70Z Performance of Urinary Filtration, Intermittent, Less than 6 Hours Per Day (ICD-10-PCS; principal; 2024-03-28)
DX: I13.2 Hypertensive heart and chronic kidney disease with heart failure and with stage 5 chronic kidney disease, or end stage renal disease (principal); I50.33 Acute on chronic diastolic (congestive) heart failure; N18.6 End stage renal disease; D64.9 Anemia, unspecified; Z99.2 Dependence on renal dialysis; K74.60 Unspecified cirrhosis of liver; J44.9 Chronic obstructive pulmonary disease, unspecified; I48.0 Paroxysmal atrial fibrillation; J98.01 Acute bronchospasm; N40.0 Benign prostatic hyperplasia without lower urinary tract symptoms
CPT/HCPCS: 0241U-QW; 36415; 71045-TC-FY; 72192-TC; 73502-TC-RT-FY; 80053; 82550; 82803; 83735; 83880; 84484; 85025; 85610; 85651; 86140; 86705; 86803; 86850; 86900; 86901; 87340; 87522; 93005; 93010; 93306-TC; 94640; 97116-GP; 97161-GP; 99285-25; G0378; J1644; Q5106